=== PATIENT | male | born 1985 | race Hispanic/Latino ===

== ENCOUNTER 2022-04-10 15:10 | Emergency (ER) | payer BC ==
[~2022-04-10] VITALS: Ht 170.2 cm; Wt 82.6 kg
[2022-04-10] MEDS ORDERED: KETOROLAC TROMETHAMINE 30 MG/ML VIAL IV STA (15:44)
[2022-04-10] MEDS ORDERED: ONDANSETRON HCL INJ 2MG/ML 2ML 2 MG/ML VIAL IV STA (15:44)
[2022-04-10] MEDS ORDERED: FAMOTIDINE 20 MG/2 ML VIAL IV STA (15:44)
[2022-04-10] MEDS ORDERED: SODIUM CHLORIDE 0.9% 1000ML 1,000 ML IV ONE (15:45)
[2022-04-10] MEDS ORDERED: FAMOTIDINE 20 MG/2 ML VIAL IV ONE (15:51)
[2022-04-10] MEDS ORDERED: SODIUM CHLORIDE 0.9% 1000ML 1,000 ML ONE (15:51)
[2022-04-10] MEDS ORDERED: KETOROLAC TROMETHAMINE 30 MG/ML VIAL ONE (15:51)
[2022-04-10] MEDS ORDERED: ONDANSETRON HCL INJ 2MG/ML 2ML 2 MG/ML VIAL ONE (15:51)
[2022-04-10] MEDS ORDERED: ONDANSETRON ODT4 MG PO (17:06)
[2022-04-10] MEDS ORDERED: FAMOTIDINE40 MG PO (17:07)
== END 2022-04-10 17:37 | disposition home or self-care (01) ==
LOC: FSED 15:14
DX: R11.2 Nausea with vomiting, unspecified (principal); A08.4 Viral intestinal infection, unspecified; R19.7 Diarrhea, unspecified; R10.30 Lower abdominal pain, unspecified
CPT/HCPCS: 80048; 80076; 81003; 85025; 96374; 96375; 96376; 99283; J1885; J2405; J7030